=== PATIENT | female | born 1960 | race Caucasian/White ===

== ENCOUNTER 2019-04-06 18:22 | Emergency (ER) | payer MEDICARE, MEDICAID, SELFPAY ==
[2019-04-06] VITALS (8 sets, daily range): BP systolic 107–127; BP diastolic 51–80; PULSE 83–106; RESP 13–24; TEMP 36.6–37.3; O2SAT 93–97
--- NOTE | ~2019-04-06 | XR_ITS ---
EXAMINATION: XR chest 2V DATE: 04/06/2019 19:45 INDICATION: COPD presenting with cough and dyspnea TECHNIQUE: frontal and lateral views of the chest were obtained. COMPARISON: Chest radiograph dated 07/29/2017 FINDINGS: The lungs remain clear with no focal airspace opacities, pulmonary edema, pleural effusion or pneumot horax. The cardiomediastinal silhouette is normal. Visualized bones and soft tissues are unremarkable . IMPRESSION: 1. No acute cardiopulmonary disease. Reviewed, dictated and finalized at location A. WELDER
--- NOTE | 2019-04-06 18:34 | ED.SOB ---
HPI - SOB/Dyspnea General Chief Complaint: Shortness of Breath/Dyspnea Stated Complaint: sob Time Seen by Provider: 04/06/19 18:28 Source: patient and RN notes reviewed Mode of arrival: EMS Limitations: no limitations History of Present Illness HPI Narrative: A 58 y/o female presents to the ED via EMS with worsening SOB beginning earlier today. She states that she is on 1L NC on and off and that today she bumped it to 1.5L NC but denies it alleviating her SOB. She reports associated substernal CP, a fever of 101, and a productive cough. Per EMS notes that they gave the pt a DuoNeb breathing tx and SoluMedrol 125 mg IVP, which the pt states helped her SOB. She denies any edema, leg pain, sweats, N/V/D, or ABD pain. MD elicited complaint: shortness of breath and pain with inspiration Pertinent past history: COPD Onset (ago): hour(s) (today) Timing: progressively worsening Relieving factors: other (DuoNeb breathing tx and SoluMedrol 125 mg IVP) Known history of: COPD Associated symptoms: chest pain (substernal), fever (101) and cough (productive) Treatment prior to arrival: oxygen and other (DuoNeb breathing tx and SoluMedrol 125 mg IVP) Related Data Home oxygen amount: 1 liter (1-1.5 NC) Allergies Allergy/AdvReac Type Severity Reaction Status Date / Time No Known Allergies Allergy Unverified 11/20/17 10:39 Review of Systems Review of Systems: Narrative: CONSTITUTIONAL: Denies sweats. Reports a fever of 101. CARDIOVASCULAR: Denies edema or leg pain. Reports substernal CP. RESPIRATORY: Reports a productive cough or dyspnea. GASTROINTESTINAL: Denies abdominal pain, nausea, vomiting, or diarrhea. All systems reviewed & are unremarkable except as noted in HPI and below PMFSH Past Medical History Medical History (Updated 04/06/19 @ 21:24 by Fawn August MD) Anxiety Arthritis Asthma Bronchitis COPD (chronic obstructive pulmonary disease) H/O: HTN (hypertension) MORTON (headache) History of ovarian cyst Hx of breast cancer Hx: UTI (urinary tract infection) Hypercholesteremia Psoriasis Sleep apnea Ulcer Surgical History Surgical History (Updated 04/06/19 @ 20:11 by Ron Noonan) History of endometrial ablation History of lumpectomy lt. Hx of shoulder surgery rt. Hx of tubal ligation Social History Social History (Updated 04/06/19 @ 20:11 by Ron Noonan) Smoking packs per day: 1 Smoking cigarettes per day: 20.0 Smoking status: Current every day smoker Exam Narrative: Exam Narrative: GENERAL: Well-appearing, well-nourished, and in no acute distress. HEAD: Normocephalic, atraumatic. EYES: PERRLA and EOMI. ENT: Nares clear, no rhinorrhea or epistaxis. Mucous membranes dry. NECK: Supple. CHEST: Mild respiratory distress, tachypneic, decreased bs in lower lungs, expiratory wheezes. HEART: Tachycardia and regular rhythm. No murmur heard. Normal peripheral pulses. ABDOMEN: Soft, nontender, nondistended, normal active bowel sounds. EXTREMITIES: Normal range of motion. No edema. SKIN: Warm, dry, no rash. NEURO: No focal deficits. Alert and oriented X3. Course Course Emergency Course: Patient presented in mild respiratory distress. Reportedly, patient has had fever, cough and shortness of breath at home. Patient also reporting chest pain, but more than the typical presentation for chest pain that she attributes more to her shortness of breath. On exam, patient does have some expiratory wheezing, increased work of breathing with use of accessory muscles. She was given another DuoNeb treatment, magnesium and steroids with improvement in her symptoms. Patient's flu swab is negative here. Patient had some lower blood pressures, but was fluid responsive. No lactic acidosis. No elevation in troponin. She has some borderline depressions on her EKG, but again with normal troponin. She was ambulated, not dizzy or lightheaded. She did not want to be admitted to the hospital, and because she was not hypoxic with ambulation, I
--- NOTE | 2019-04-06 18:35 | ECG_ITS ---
Measurements Intervals [place] Rate: 104 P: 47 TX: 131 QRS: 61 QRSD: 93 T: 45 QT: 363 QTc: 479 Interpretive Statements SINUS TACHYCARDIA DELAYED PRECORDIAL R/S TRANSITION NONSPECIFIC ST & T-WAVE ABNORMALITY- INF/LAT LEADS ABNORMAL ECG Electronically Signed On 04-08-2019 12:55:21 AUDIO VISUAL AIDE by Evan Galloway D.O.
--- NOTE | 2019-04-06 18:35 | PC.NURSE ---
Late entry: [facility] STAT for SOB, per Dr. August.
[2019-04-06] MEDS: ACETAMINOPHEN 500 MG TABLET 1000 MG PO (18:50)
[2019-04-06] MEDS: SODIUM CHLORIDE 0.9% IV 1,000 ML 999 ML IV CONT (18:50)
[2019-04-06] MEDS: ONDANSETRON INJ 4 MG/2 ML VIAL IV PUSH (18:50)
[2019-04-06 18:59] LABS: Basophils Absolute Auto 0.1 K/mm3 (0.0-0.1); Basophils Percent Auto 0.7 % (0.2-1.2); Eosinophils Absolute Auto 0.1 K/mm3 (0-0.3); Eosinophils Percent Auto 1.1 % (0-4.4); Hematocrit 39.4 % (37.0-47.0); Hemoglobin 13.1 g/dL (12.0-15.0); Immature Granulocyte Absolute 0.02 K/mm3 (0.00-0.031); Immature Granulocyte Percent A 0.3 % (0-0.5); Lymphocytes Absolute Auto 0.86 K/mm3 (0.9-3.2); Lymphocytes Percent Auto 12.2 % (18.3-44.2); Mean Corpuscular HGB Conc 33.2 g/dl (32-36); Mean Corpuscular Hemoglobin 32.5 pg (26-34); Mean Corpuscular Volume 97.8 fl (80-100); Mean Platelet Volume 10.7 fl (7.4-10.4); Monocytes Absolute Auto 1.4 K/mm3 (0.1-0.6); Monocytes Percent Auto 20.2 % (2.6-8.5); Neutrophils Absolute Auto 4.6 K/mm3 (1.3-6.7); Neutrophils Percent Auto 65.5 % (45.5-73.1); Platelet Count Result 178 k/mm3 (150-375); Red Blood Count 4.03 M/mm3 (4.2-5.4); White Blood Count 7.1 K/mm3 (4.5-10.0)
[2019-04-06] MEDS: ALBUTEROL SULFATE NEB 2.5 MG/0.5 ML INH 20 MG INHALATION (19:00)
[2019-04-06 19:10] LABS: Alanine Aminotransferase 42 U/L (4-35); Alkaline Phosphatase 84 U/L (38-126); Aspartate Amino Transferase 28 U/L (14-36); Bilirubin,Total 0.4 mg/dL (0.2-1.3); Blood Urea Nitrogen 14 mg/dL (7-17); Calcium 8.5 mg/dL (8.4-10.2); Carbon Dioxide 25 mmol/L (22-30); Chloride 100 mmol/L (98-107); Estimated CRCL calculation 82 ml/min; Estimated Glomerular Filt Rate > 60; Glucose 108 mg/dL (65-105); Lipase 41 U/L (23-300); Potassium 3.1 mmol/L (3.4-5.0); Sodium 135 mmol/L (137-145)
[2019-04-06 19:12] LABS: Prothrombin Time 13.1 Seconds (11.1-14.7)
[2019-04-06 19:13] LABS: Partial Thromboplastin Time 29.4 SECONDS (22.3-36.8)
[2019-04-06] MEDS: MAGNESIUM SULF 2 GM/WATER 50ML 2 GM/50 ML BAG IVPB (19:19)
[2019-04-06 19:22] LABS: Troponin I < 0.012 ng/mL (0.000-0.034)
[2019-04-06 19:29] LABS: Lactic Acid Reflex 1.1 mmol/L (0.7-2.1)
--- NOTE | 2019-04-06 20:18 | PC.NURSE ---
Patient refused ABG draw, stating I heard they hurt I am not doing that. EDP Mata aware.
[2019-04-06 20:39] LABS: Add Urine Microscopic? YES; Appearance Urine Clear (Clear); Bacteria Urine Trace /hpf; Bilirubin Urine Negative (Negative); Blood Urine 2+ (Negative); Color Urine Yellow (Yellow); Glucose Urine UA Negative (Negative); Ketones Urine Negative (Negative); Leukocyte Esterase Ur Negative LEU/UL (Negative); Mucus Urine Few /lpf; Nitrate Urine Negative (Negative); Protein Urine Negative (Negative); RBC Urine 0-2 /hpf (0-2); Specific Grav Ur 1.019 (1.001-1.035); Squamous Epithelial Cell Urine Rare /hpf (Few); Urobilinogen Urine Negative mg/dL (<2.0)
--- NOTE | 2019-04-06 21:19 | PC.NURSE ---
While ambulating patient on pulse ox, patient's O2 level ranging from 91%-93% on room air.
--- NOTE | 2019-04-06 21:43 | PC.NURSE ---
Breathing treatment administered by ED Respiratory.
--- NOTE | 2019-04-06 21:43 | PC.NURSE ---
Patient refusing another 1000mL bag of NS. States she wants to leave right now. EDP Mata notified.
--- NOTE | 2019-04-11 04:28 | PC.NURSE ---
LATE ENTRY This note is being entered to document information to the patient's record. The following information was omitted on [04/06/2019], by [Madi Fajardo]. EKG completed at 1835, shown to LILO August.
== END 2019-04-06 21:55 | disposition home or self-care (01) ==
PROVIDERS: Emergency Provider Emergency Medicine
DX: J44.1 Chronic obstructive pulmonary disease with (acute) exacerbation (principal); M19.90 Unspecified osteoarthritis, unspecified site; I10 Essential (primary) hypertension; E78.00 Pure hypercholesterolemia, unspecified; Z85.3 Personal history of malignant neoplasm of breast; Z87.440 Personal history of urinary (tract) infections; G47.30 Sleep apnea, unspecified; F17.210 Nicotine dependence, cigarettes, uncomplicated; R00.0 Tachycardia, unspecified; R94.31 Abnormal electrocardiogram [ECG] [EKG]
CPT/HCPCS: 36415; 71046; 80053; 81001; 83605; 83690; 84484; 85025; 85610; 85730; 87040; 87804; 93005; 94640; 96365; 96375; 99284; A9270; J2405; J3475; J7030

== ENCOUNTER 2019-07-21 18:18 | Emergency (ER) | payer MEDICARE, MEDICAID, SELFPAY ==
--- NOTE | ~2019-07-21 | XR_ITS ---
EXAMINATION: XR ribs BI 3V w CXR 2V EXAM DATE: 07/21/2019 19:36 INDICATION: Right rib pain laterally. Left rib pain posteriorly. TECHNIQUE: Frontal projection of the upper left ribs, frontal projection of the lower left ribs, obli que projection of the left ribs. Frontal projection of the upper right ribs, frontal projection of t he lower right ribs, oblique projection of the right ribs, frontal and lateral chest x-ray(s) for int erpretation. Comparison is made to prior examination from 04/06/2019. FINDINGS: There are no displaced acute rib fractures identified. Consider educating patient that even if there is a radiographically occult nondisplaced rib fracture, there is no specific treatment othe r than to refrain from activity that prevents healing. There are no osteoblastic or osteolytic lesions identified. 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 No confluent consolidation, pneumothorax or pleural effusion suspected. Cardiomediastinal silhouet te is normal. IMPRESSION: No acute displaced rib fractures bilaterally. Reviewed, dictated and finalized at location A.
[2019-07-21 18:21] VITALS: BP 107/86; PULSE 83; RESP 18; TEMP 37.2; O2SAT 100
[2019-07-21 18:51] LABS: Add Urine Microscopic? YES; Appearance Urine Clear (Clear); Bacteria Urine Trace /hpf; Bilirubin Urine Negative (Negative); Blood Urine 2+ (Negative); Color Urine Yellow (Yellow); Glucose Urine UA Negative (Negative); Ketones Urine Negative (Negative); Leukocyte Esterase Ur Negative LEU/UL (Negative); Mucus Urine Rare /lpf; Nitrate Urine Negative (Negative); Protein Urine Negative (Negative); RBC Urine 0-2 /hpf (0-2); Specific Grav Ur 1.016 (1.001-1.035); Squamous Epithelial Cell Urine Rare /hpf (Few); Urobilinogen Urine Negative mg/dL (<2.0); WBC Urine 0-3 /hpf
[2019-07-21 19:03] LABS: Basophils Absolute Auto 0.1 K/mm3 (0.0-0.1); Basophils Percent Auto 0.8 % (0.2-1.2); Eosinophils Absolute Auto 0.2 K/mm3 (0-0.3); Eosinophils Percent Auto 1.9 % (0-4.4); Hematocrit 40.7 % (37.0-47.0); Hemoglobin 13.5 g/dL (12.0-15.0); Immature Granulocyte Absolute 0.02 K/mm3 (0.00-0.031); Immature Granulocyte Percent A 0.2 % (0-0.5); Lymphocytes Absolute Auto 1.34 K/mm3 (0.9-3.2); Lymphocytes Percent Auto 14.5 % (18.3-44.2); Mean Corpuscular HGB Conc 33.2 g/dl (32-36); Mean Corpuscular Hemoglobin 32.8 pg (26-34); Mean Corpuscular Volume 98.8 fl (80-100); Mean Platelet Volume 10.4 fl (7.4-10.4); Monocytes Absolute Auto 0.7 K/mm3 (0.1-0.6); Monocytes Percent Auto 7.4 % (2.6-8.5); Neutrophils Percent Auto 75.2 % (45.5-73.1); Platelet Count Result 258 k/mm3 (150-375); Red Blood Count 4.12 M/mm3 (4.2-5.4); Red Cell Distribution Width 13.4 % (11.5-14.5); White Blood Count 9.3 K/mm3 (4.5-10.0)
[2019-07-21 19:14] LABS: Blood Urea Nitrogen 11 mg/dL (7-17); Calcium 8.9 mg/dL (8.4-10.2); Carbon Dioxide 29 mmol/L (22-30); Chloride 103 mmol/L (98-107); Estimated CRCL calculation 82 ml/min; Estimated Glomerular Filt Rate > 60; Glucose 99 mg/dL (65-105); Potassium 3.6 mmol/L (3.4-5.0); Sodium 136 mmol/L (137-145)
--- NOTE | 2019-07-21 19:17 | ECG_ITS ---
Measurements Intervals [place] Rate: 64 P: 56 NV: 122 QRS: 74 QRSD: 102 T: 50 QT: 406 QTc: 421 Interpretive Statements SINUS RHYTHM BASELINE WANDER- I, II, AVR NORMAL ECG Electronically Signed On 07-22-2019 7:06:31 CDT by Evan Galloway D.O.
[2019-07-21 19:26] LABS: Alanine Aminotransferase 24 U/L (4-35); Albumin Level 4.2 g/dL (3.5-5.1); Alkaline Phosphatase 98 U/L (38-126); Aspartate Amino Transferase 30 U/L (14-36); Bilirubin,Total 0.9 mg/dL (0.2-1.3); Lipase 38 U/L (23-300)
--- NOTE | 2019-07-21 19:45 | ED.BACK ---
HPI - Back Pain/Injury General Chief Complaint: Back Pain/Injury <Yudy Dietrich PA-C - Last Filed: 07/21/19 21:07> Stated Complaint: flank pain <MARCIE Ceballos Last Filed: 07/21/19 21:07> Time Seen by Provider: 07/21/19 18:57 <MARCIE Ceballos Last Filed: 07/21/19 21:07> Source: patient <MARCIE Ceballos Last Filed: 07/21/19 21:07> Mode of arrival: ambulatory <MARCIE Ceballos Last Filed: 07/21/19 21:07> Limitations: no limitations <MARCIE Ceballos Last Filed: 07/21/19 21:07> History of Present Illness HPI Narrative: This is a 58 year old female that presents to the ER for right sided rib pain and upper back pain x 1 week. No known injury or trauma. Pain is worse with movement and relieved with rest. She has been taking pain medication with little relief. Denies fever, cough, shortness of breath, abdominal pain, vomiting, dysuria, hematuria. <MARCIE Ceballos Last Filed: 07/21/19 21:07> Related Data Allergies/Adverse Reactions: Allergies Allergy/AdvReac Type Severity Reaction Status Date / Time ciprofloxacin Allergy Vomiting Verified 07/21/19 18:25 levofloxacin [From Levaquin] Allergy Vomiting Verified 07/21/19 18:25 <MARCIE Ceballos Last Filed: 07/21/19 21:07> Review of Systems Review of Systems: Narrative: CONSTITUTIONAL: Denies fever CARDIOVASCULAR: Reports chest pain RESPIRATORY: Denies cough or dyspnea. GASTROINTESTINAL: Denies abdominal pain, nausea, vomiting, or diarrhea. GENITOURINARY: Denies dysuria or hematuria. MUSCULOSKELETAL: Reports back pain, joint pain, and myalgia. <MARCIE Ceballos Last Filed: 07/21/19 21:07> All systems reviewed & are unremarkable except as noted in HPI and below <MARCIE Ceballos Last Filed: 05/24/20 21:07> PMFSH Past Medical History Medical History: Medical History (Updated 07/22/19 @ 00:00 by Evangelista Sales) Anxiety Arthritis Asthma Bronchitis COPD (chronic obstructive pulmonary disease) H/O: HTN (hypertension) MORTON (headache) History of ovarian cyst Hx of breast cancer Hx: UTI (urinary tract infection) Hypercholesteremia Psoriasis Sleep apnea Ulcer <Yudy Dietrich PA-C - Last Filed: 07/21/19 21:07> Surgical History Surgical History: Surgical History (Updated 04/06/19 @ 20:11 by Ron Noonan) History of endometrial ablation History of lumpectomy lt. Hx of shoulder surgery rt. Hx of tubal ligation <Yudy Dietrich PA-C - Last Filed: 07/21/19 21:07> Social History Social History: Social History (Updated 04/06/19 @ 20:11 by Ron Noonan) Smoking packs per day: 1 Smoking cigarettes per day: 20.0 Smoking status: Current every day smoker <Yudy Dietrich PA-C - Last Filed: 07/21/19 21:07> Course Vital Signs Vital signs: Vital Signs Temperature 37.2 C 07/21/19 18:21 Pulse Rate 83 07/21/19 18:21 Respiratory Rate 18 07/21/19 18:21 Blood Pressure 107/86 07/21/19 18:21 Pulse Oximetry 100 07/21/19 18:21 Temperature 37.2 C 07/21/19 18:21 Pulse Rate 81 07/21/19 21:15 Respiratory Rate 18 07/21/19 21:15 Blood Pressure 112/64 07/21/19 21:15 Pulse Oximetry 98 07/21/19 21:15 <Yudy Dietrich PA-C - Last Filed: 07/21/19 21:07> Vital Signs Temperature 37.2 C 07/21/19 18:21 Pulse Rate 83 07/21/19 18:21 Respiratory Rate 18 07/21/19 18:21 Blood Pressure 107/86 07/21/19 18:21 Pulse Oximetry 100 07/21/19 18:21 Temperature 37.2 C 07/21/19 18:21 Pulse Rate 81 07/21/19 21:15 Respiratory Rate 18 07/21/19 21:15 Blood Pressure 112/64 07/21/19 21:15 Pulse Oximetry 98 07/21/19 21:15 <Isak Pablo MD - Last Filed: 07/22/19 03:41> MDM - Back Pain/Injury MDM Narrative Medical decision making narrative: Patient presents to the emergency department for right-sided rib pain and left sided upper back pain x1 week. No known inj
[2019-07-21 19:50] LABS: Troponin I < 0.012 ng/mL (0.000-0.034)
[2019-07-21 21:15] VITALS: BP 112/64; PULSE 81; RESP 18; O2SAT 98
== END 2019-07-21 21:18 | disposition home or self-care (01) ==
PROVIDERS: Emergency Medicine; Physician Assistant; Emergency Provider Emergency Medicine
DX: R07.81 Pleurodynia (principal); M54.6 Pain in thoracic spine; M19.90 Unspecified osteoarthritis, unspecified site; J45.909 Unspecified asthma, uncomplicated; J44.9 Chronic obstructive pulmonary disease, unspecified; I10 Essential (primary) hypertension; Z85.3 Personal history of malignant neoplasm of breast; Z87.440 Personal history of urinary (tract) infections; E78.00 Pure hypercholesterolemia, unspecified; G47.30 Sleep apnea, unspecified; F17.210 Nicotine dependence, cigarettes, uncomplicated
CPT/HCPCS: 36415; 71046; 71110; 80048; 80076; 81001; 83690; 84484; 85025; 93005; 96374; 96375; 99284; J0131; J3360

== ENCOUNTER 2019-08-04 17:21 | Emergency (ER) | payer MEDICARE, MEDICAID, SELFPAY ==
--- NOTE | ~2019-08-04 | XR_ITS ---
EXAMINATION: XR chest 1V portable EXAM DATE: 08/04/2019 18:36 INDICATION: Hemoptysis. Shortness of breath abdominal pain. History of liver disease and lung cancer. TECHNIQUE: Portable AP frontal chest x-ray was obtained. Comparison is made to prior examination from 07/21/2019. FINDINGS: The lungs are clear. There are no pleural effusions. The cardiomediastinal silhouette is within normal limits. There is no pneumothorax suspected. The bones and soft tissues are unremarkab le. Mild hyperinflation. IMPRESSION: No acute cardiopulmonary findings. Reviewed, dictated and finalized at location A.
[2019-08-04 17:22] VITALS: BP 151/75; PULSE 78; RESP 16; TEMP 36.7; O2SAT 100
[2019-08-04 17:41] LABS: Basophils Percent Auto 0.4 % (0.2-1.2); Eosinophils Absolute Auto 0.3 K/mm3 (0-0.3); Eosinophils Percent Auto 2.7 % (0-4.4); Hematocrit 41.3 % (37.0-47.0); Hemoglobin 13.7 g/dL (12.0-15.0); Immature Granulocyte Absolute 0.04 K/mm3 (0.00-0.031); Immature Granulocyte Percent A 0.4 % (0-0.5); Lymphocytes Absolute Auto 1.58 K/mm3 (0.9-3.2); Lymphocytes Percent Auto 14.1 % (18.3-44.2); Mean Corpuscular HGB Conc 33.2 g/dl (32-36); Mean Corpuscular Hemoglobin 33.5 pg (26-34); Mean Platelet Volume 10.7 fl (7.4-10.4); Monocytes Absolute Auto 0.9 K/mm3 (0.1-0.6); Monocytes Percent Auto 7.7 % (2.6-8.5); Neutrophils Absolute Auto 8.4 K/mm3 (1.3-6.7); Neutrophils Percent Auto 74.7 % (45.5-73.1); Platelet Count Result 263 k/mm3 (150-375); Red Blood Count 4.09 M/mm3 (4.2-5.4); White Blood Count 11.2 K/mm3 (4.5-10.0)
--- NOTE | 2019-08-04 17:41 | ED.GENADULT ---
HPI - General Adult General Chief complaint: Abdominal Pain Stated complaint: abd pain, cough up blood Time Seen by Provider: 08/04/19 17:23 History of Present Illness HPI narrative: Patient is a 58 y/o female complaining of right upper abdominal pain for last 3 weeks. She describes her pain as sharp and rate it as more than 10/10. There is no pain radiation. She has some chest pain with cough and some chronic SOB. She also coughs up blood intermittently. She states that heating pad alleviates her pain slightly. Of note, she had CT scan done at [facility] last week. She states that she was told it showed lung nodule and liver lesion. She was referred to a oncologist (Dr. Saravia) and scheduled to have PET scan. She was told Dr. Saravia today to come to ED for evaluation. Related Data Home Medications Medication Instructions Recorded Confirmed albuterol sulfate [Ventolin HFA] INHALATION 08/04/19 alendronate [Fosamax] 70 mg PO WEEKLY 08/04/19 08/04/19 amlodipine 08/04/19 anastrozole mg 08/04/19 aspirin [Aspir-81] 81 mg PO DAILY 08/04/19 08/04/19 budesonide 0.5 mg INHALATION DAILY 08/04/19 calcium carbonate-vitamin D3 1 tablet PO DAILY 08/04/19 [Caltrate 600 plus D] clopidogrel [Plavix] 08/04/19 cyanocobalamin (vitamin B-12) 1,000 mcg PO DAILY 08/04/19 ezetimibe [Zetia] mg 08/04/19 folic acid 1 mg PO DAILY 08/04/19 furosemide 08/04/19 08/04/19 hydrocodone-acetaminophen PRN 08/04/19 irbesartan mg 08/04/19 irbesartan mg 08/04/19 lorazepam 08/04/19 methotrexate sodium 08/04/19 potassium chloride 10 PRN 08/04/19 rosuvastatin mg 08/04/19 Allergies Allergy/AdvReac Type Severity Reaction Status Date / Time ciprofloxacin Allergy Vomiting Verified 08/04/19 17:46 levofloxacin [From Levaquin] Allergy Vomiting Verified 08/04/19 17:46 Review of Systems Constitutional: Constitutional: Denies chills, Denies fever(s), Denies headache(s) and Denies weakness Eyes: Eyes: Denies blurry vision ENT: Denies headache(s) and Denies neck pain Cardiovascular: Cardiovascular: Reports chest pain and Reports dyspnea Respiratory: Respiratory: Reports cough, Reports hemoptysis, Reports pain with cough and Denies dyspnea Gastrointestinal: Gastrointestinal: Reports abdominal pain, Denies diarrhea, Denies nausea and Denies vomiting Genitourinary: Genitourinary: Denies hematuria and Denies dysuria Musculoskeletal: Musculoskeletal: Denies back pain and Denies neck pain Neurologic: Denies headache(s) and Denies weakness PMFSH Past Medical History Medical History Anxiety Arthritis Asthma Bronchitis COPD (chronic obstructive pulmonary disease) H/O: HTN (hypertension) MORTON (headache) History of ovarian cyst Hx of breast cancer Hx: UTI (urinary tract infection) Hypercholesteremia Psoriasis Sleep apnea Ulcer Surgical History Surgical History History of endometrial ablation History of lumpectomy lt. Hx of shoulder surgery rt. Hx of tubal ligation Social History Social History Smoking packs per day: 1 Smoking cigarettes per day: 20.0 Smoking status: Current every day smoker Gender identity (if verbalized by the patient): Female Exam Const: General: no acute distress and well developed Orientation/consciousness: oriented to person, oriented to place, oriented to time and patient oriented x3 HENMT: Head: normocephalic Ears: external ears normal General nose exam: Normal external nose present Eyes: General: appearance normal, both eyes and all related structures Conjunctivae: conjunctivae normal Neck: Neck: normal visual inspection and full ROM Chest: Chest palpation & inspection: normal inspection of the chest and no tenderness Resp: Effort & Inspection: normal respiratory effort Auscultation: clear to auscultation bilaterally Cardio:
[2019-08-04 17:53] LABS: Alanine Aminotransferase 36 U/L (4-35); Albumin Level 3.8 g/dL (3.5-5.1); Alkaline Phosphatase 95 U/L (38-126); Aspartate Amino Transferase 60 U/L (14-36); Bilirubin,Total 1.2 mg/dL (0.2-1.3); Blood Urea Nitrogen 12 mg/dL (7-17); Calcium 8.5 mg/dL (8.4-10.2); Carbon Dioxide 27 mmol/L (22-30); Chloride 100 mmol/L (98-107); Estimated CRCL calculation 94 ml/min; Estimated Glomerular Filt Rate > 60; Glucose 116 mg/dL (65-105); Lipase 40 U/L (23-300); Potassium 3.8 mmol/L (3.4-5.0); Sodium 132 mmol/L (137-145)
[2019-08-04] MEDS: ONDANSETRON INJ 4 MG/2 ML VIAL IV PUSH (18:07)
[2019-08-04] MEDS: MORPHINE SULFATE 4 MG/ML INJ IV PUSH (18:08)
[2019-08-04 19:03] VITALS: BP 134/86; PULSE 74; RESP 18; O2SAT 98
[2019-08-04 19:15] LABS: Add Urine Microscopic? YES; Appearance Urine Clear (Clear); Bilirubin Urine Negative (Negative); Blood Urine 1+ (Negative); Color Urine Yellow (Yellow); Glucose Urine UA Negative (Negative); Ketones Urine Negative (Negative); Leukocyte Esterase Ur Negative LEU/UL (Negative); Mucus Urine Rare /lpf; Nitrate Urine Negative (Negative); Protein Urine Negative (Negative); Specific Grav Ur 1.014 (1.001-1.035); Squamous Epithelial Cell Urine Occasional /hpf (Few); WBC Urine 0-3 /hpf
[2019-08-04 20:03] VITALS: BP 124/83; PULSE 84; RESP 20; O2SAT 95
== END 2019-08-04 20:05 | disposition home or self-care (01) ==
PROVIDERS: Emergency Provider Emergency Medicine
DX: R91.8 Other nonspecific abnormal finding of lung field (principal); R16.0 Hepatomegaly, not elsewhere classified; M19.90 Unspecified osteoarthritis, unspecified site; F41.9 Anxiety disorder, unspecified; J44.9 Chronic obstructive pulmonary disease, unspecified; I10 Essential (primary) hypertension; Z85.3 Personal history of malignant neoplasm of breast; Z87.440 Personal history of urinary (tract) infections; E78.00 Pure hypercholesterolemia, unspecified; G47.30 Sleep apnea, unspecified; F17.210 Nicotine dependence, cigarettes, uncomplicated
CPT/HCPCS: 36415; 71045; 80053; 81001; 83690; 85025; 96374; 96375; 99284; J2270; J2405

== ENCOUNTER 2020-08-11 18:26 | Emergency (ER) | payer MEDICARE, MEDICAID, SELFPAY ==
[2020-08-11 18:34] VITALS: BP 140/96; PULSE 82; RESP 16; TEMP 37; O2SAT 100
--- NOTE | 2020-08-11 21:45 | ED.GENADULT ---
HPI - General Adult General Chief complaint: Unspecified Stated complaint: sore to lower lip Time Seen by Provider: 08/11/20 21:32 History of Present Illness HPI narrative: Patient is a 59-year-old female who presents the emergency department with chief complaint of mouth pain. Patient reports she is seen by with her primary care physician and dermatology she is on a Magic mouthwash to help with the discomfort which she states is not helping. The patient states she is on a oral antiviral and also has been on an antibiotic. Patient denies fever denies shortness of breath reports that it hurts whenever she swallows patient also reports that she has irritation in her rectal area Related Data Home Medications Medication Instructions Recorded Confirmed albuterol sulfate [Ventolin HFA] INHALATION 08/04/19 alendronate [Fosamax] 70 mg PO WEEKLY 08/04/19 08/04/19 amlodipine 08/04/19 anastrozole mg 08/04/19 aspirin [Aspir-81] 81 mg PO DAILY 08/04/19 08/04/19 budesonide 0.5 mg INHALATION DAILY 08/04/19 calcium carbonate-vitamin D3 1 tablet PO DAILY 08/04/19 [Caltrate 600 plus D] clopidogrel [Plavix] 08/04/19 cyanocobalamin (vitamin B-12) 1,000 mcg PO DAILY 08/04/19 ezetimibe [Zetia] mg 08/04/19 folic acid 1 mg PO DAILY 08/04/19 furosemide 08/04/19 08/04/19 hydrocodone-acetaminophen PRN 08/04/19 irbesartan mg 08/04/19 irbesartan mg 08/04/19 lorazepam 08/04/19 methotrexate sodium 08/04/19 potassium chloride 10 PRN 08/04/19 rosuvastatin mg 08/04/19 Allergies Allergy/AdvReac Type Severity Reaction Status Date / Time hydrocodone Allergy Unknown Verified 08/08/19 08:48 ciprofloxacin Allergy Vomiting Verified 08/08/19 08:48 levofloxacin [From Levaquin] Allergy Vomiting Verified 08/08/19 08:48 Review of Systems Review of Systems: Narrative: A 10 system review of systems was completed on the patient and is negative except for what is stated in the HPI. Nursing and ancillary documentation was reviewed. [facility] Past Medical History Medical History (Updated 08/11/20 @ 21:53 by Dangelo Hogan MD) Anxiety Arthritis Asthma Bronchitis COPD (chronic obstructive pulmonary disease) H/O: HTN (hypertension) MORTON (headache) History of ovarian cyst Hx of breast cancer Hx: UTI (urinary tract infection) Hypercholesteremia Psoriasis Sleep apnea Ulcer Surgical History Surgical History History of endometrial ablation History of lumpectomy lt. Hx of shoulder surgery rt. Hx of tubal ligation Family History Family History Mother Family history of cardiovascular disease Father Family history of primary malignant neoplasm of liver Family history of liver disease Social History Social History Smoking packs per day: 1 Smoking cigarettes per day: 20.0 Smoking status: Current every day smoker Second hand tobacco smoke exposure: No Alcohol intake: never Gender identity (if verbalized by the patient): Female Exam Narrative: Exam Narrative: GENERAL: Well-appearing, well-nourished, and in no acute distress. HEAD: Normocephalic, atraumatic. EYES: PERRLA and EOMI. ENT: Nares clear, no rhinorrhea or epistaxis. Mucous membranes moist. Multiple ulcerations in the mouth NECK: Supple. CHEST: Clear to auscultation. No respiratory distress. HEART: Regular rate and rhythm. No murmur heard. Normal peripheral pulses. ABDOMEN: Soft, nontender, nondistended, normal active bowel sounds. EXTREMITIES: Normal range of motion. No edema. : There are ulcerations in the rectal area SKIN: Warm, dry, no rash. NEURO: No focal deficits. Alert and oriented x3. PSYCH: Normal mood and affect. Course Vital Signs Vital signs: Vital Signs Temperature 37.0 C 08/11/20 18:34 Pulse Rate 82 08/11/20 18:34 Respiratory
[2020-08-11] MEDS: DEXAMETHASONE SOD PHOS INJ 4 MG/ML VIAL 10 MG IM (22:06)
[2020-08-11] MEDS: HYDROmorphone HCL INJ (*CRX) 1 MG/ML SYR IM (22:07)
[2020-08-11 22:12] VITALS: BP 132/89; PULSE 78; RESP 20; O2SAT 99
== END 2020-08-11 22:12 | disposition home or self-care (01) ==
PROVIDERS: Emergency Provider Emergency Medicine
DX: K12.1 Other forms of stomatitis (principal); J44.9 Chronic obstructive pulmonary disease, unspecified; I10 Essential (primary) hypertension; E78.00 Pure hypercholesterolemia, unspecified; G47.30 Sleep apnea, unspecified; M19.90 Unspecified osteoarthritis, unspecified site; Z85.3 Personal history of malignant neoplasm of breast; Z87.440 Personal history of urinary (tract) infections; Z79.82 Long term (current) use of aspirin; F17.210 Nicotine dependence, cigarettes, uncomplicated
CPT/HCPCS: 96372; 99284; J1100; J1170

== ENCOUNTER 2021-12-08 08:11 | Outpatient (CLI) | payer MEDICARE, MEDICAID, SELFPAY ==
--- NOTE | ~2021-12-08 | US_ITS ---
EXAMINATION: US carotid duplex BI DATE: 12/08/2021 10:14 INDICATION: Occlusion) stenosis of unspecified carotid artery TECHNIQUE: Grayscale, color Doppler, and pulsed Doppler images of the cervical carotid arteries were obtained. The degree of vessel stenosis is placed in one of the following categories: normal, <50%, 5 0-69%, >=70% but less than near-occlusion, near-occlusion, or total occlusion. Note that percent sten osis relative to normal distal artery lumen diameter is indirectly measured from velocity measurement s as described by Isak, et al. Radiology 2003; 229:340-346. COMPARISON: None. FINDINGS: RIGHT: The right common carotid artery (CCA) peak systolic velocity (PSV) is 72 cm/s. The right internal car otid artery (ICA) PSV is 88 cm/s. The right ICA end-diastolic velocity (EDV) is 11 cm/s. The right IC A/CCA PSV ratio is 1.2. Grayscale and color Doppler images yield an estimate of <50% diameter reducti on from plaque in the ICA. The external carotid artery (ECA) PSV is 178 cm/s. There is antegrade flow in the right vertebral artery. LEFT: The left CCA PSV is 68 cm/s. The left ICA PSV is 117 cm/s. The left ICA EDV is 38 cm/s. The left ICA/ CCA PSV ratio is 1.7. Grayscale and color Doppler images yield an estimate of <50% diameter reduction from plaque in the ICA. The ECA PSV is 95 cm/s. There is antegrade flow in the left vertebral artery . IMPRESSION: 1. <50% stenosis in the right internal carotid artery. 2. <50% stenosis in the left internal carotid artery. Reviewed, dictated and finalized at location B.
--- NOTE | 2021-12-08 08:25 | ECHO_ITS ---
Patient Info Name: Robyn Mendez Age: 61 years : 1960 Gender: Female Ht: 65 in Wt: 214 lbs BSA: 2.15 m2 HR: 78 bpm BP: 117 / 69 mmHg Technical Quality: Fair Exam Date: 12/08/2021 9:26 AM Exam Location: [facility] Pul[facility] Patient Status: Outpatient Admit Date: 12/08/2021 Staff Ordering Physician: Evan Galloway DO Grocery Stock Clerk: Sola Benjamin RDCS Attending Provider: Evan Galloway DO Referring Physician: Nilesh PATINO; Exam Type: CA echo doppler color flow Study Info Indications R06.00 - Dyspnea, unspecified Complete two-dimensional, color flow and Doppler transthoracic echocardiogram is performed. Summary 1. Complete two-dimensional, color flow and Doppler transthoracic echocardiogram is performed. 2. Left ventricular chamber dimension is normal. 3. Left ventricular systolic function is normal, estimated at 60-65%. 4. The left ventricular diastolic function is grade I diastolic dysfunction. 5. E/e' 10 is mildly elevated. 6. Global longitudinal strain is normal at -17.2%. 7. The mitral valve has moderately calcified annulus. 8. There is trace tricuspid valve regurgitation. 9. No pulmonary hypertension, estimated pulmonary arterial systolic pressure is 27 mmHg. Left Ventricle E/e' 10 is mildly elevated. Global longitudinal strain is normal at -17.2%. Left ventricular chamber dimension is normal. Left ventricular systolic function is normal, estimated at 60-65%. The left ventricular diastolic function is grade I diastolic dysfunction. Right Ventricle Right ventricular systolic function is normal and with normal TAPSE 2.4 cm. Right ventricular chamber dimension is normal. Left Atria Left atrial chamber dimension is normal. Right Atria Right atrial chamber dimension is normal. Aortic Valve The aortic valve is probable trileaflet. There is no aortic valve stenosis. There is no aortic valve regurgitation. Pulmonic Valve There is no pulmonic regurgitation. Mitral Valve The mitral valve has moderately calcified annulus. There is no mitral valve stenosis. There is no mitral valve regurgitation. Tricuspid Valve There is trace tricuspid valve regurgitation. No pulmonary hypertension, estimated pulmonary arterial systolic pressure is 27 mmHg. Pericardium/Pleural There is no pericardial effusion. Inferior Vena Cava Normal inferior vena cava with >50% collapse upon inspiration consistent with normal right atrial pressure, 5 mmHg. Aorta The aortic root size at the sinus of Valsalva is normal. Left Ventricular Outflow Tract Name Value Normal LVOT 2D LVOT Diameter 2.0 cm LVOT Doppler LVOT Peak Gradient 5 mmHg LVOT Mean Gradient 3 mmHg LVOT VTI 25 cm LVOT VTI/AV VTI Ratio 0.9 LVOT Stroke Volume 75 ml LVOT CO 14.4 l/min LVOT CI 6.7 l/min/m2 Pulmonic Valve Name
== END 2021-12-08 08:12 | disposition home or self-care (01) ==
PROVIDERS: Visit Provider Internal Medicine Cardiovascular Disease
DX: I65.23 Occlusion and stenosis of bilateral carotid arteries (principal); R06.09 Other forms of dyspnea
CPT/HCPCS: 93306; 93880

== ENCOUNTER 2022-03-03 15:12 | Outpatient (CLI) | payer MEDICARE, MEDICAID, SELFPAY ==
[2022-03-03 15:43] LABS: Alanine Aminotransferase 30 U/L (6-35); Albumin Level 4.1 g/dL (3.5-5.1); Alkaline Phosphatase 86 U/L (38-126); Anion Gap 10 mmol/L (8-16); Aspartate Amino Transferase 27 U/L (14-36); Bilirubin,Total 0.4 mg/dL (0.2-1.3); Blood Urea Nitrogen 17 mg/dL (7-17); Calcium 8.5 mg/dL (8.4-10.2); Carbon Dioxide 23 mmol/L (22-30); Chloride 104 mmol/L (98-107); Cholesterol 132 mg/dL (0-200); Estimated Glomerular Filt Rate > 60; Glucose 152 mg/dL (65-110); HDL Direct 40 mg/dL; Potassium 3.6 mmol/L (3.4-5.0); Sodium 137 mmol/L (137-145); Triglycerides 111 mg/dL (<150)
[2022-03-03 15:54] LABS: LDL Cholesterol Direct 65 mg/dL
== END 2022-03-03 15:13 | disposition home or self-care (01) ==
PROVIDERS: Visit Provider Internal Medicine Cardiovascular Disease
DX: E78.00 Pure hypercholesterolemia, unspecified (principal)
CPT/HCPCS: 36415; 80053; 80061

== ENCOUNTER → 2022-03-07 08:54 | Outpatient (CLI) | payer MEDICARE, MEDICAID, SELFPAY ==
--- NOTE | ~2022-03-07 | DEXA_ITS ---
Bone Density Report Name: COOKIE CEDEÑO Age: 61 Sex: Female Ethnicity: White Date of : 1960 Indication: postmenopausal; screening for osteoporosis; cancer; asthma or emphysema; Referring Provider: JOSE ALFREDO PHILIPPE Study: Bone densitometry was performed. Exam Date: March 07, 2022 Accession number: [id number] Bone Density: Region BMD T-score Z-score Classification AP Spine (L1-L4) 0.833 -1.9 -0.5 Osteopenia Femoral Neck (Left) 0.605 -2.2 -0.9 Osteopenia Total Hip (Left) 0.835 -0.9 0.1 Normal Femoral Neck (Right) 0.613 -2.1 -0.8 Osteopenia Total Hip (Right) 0.799 -1.2 -0.2 Osteopenia Total Hip Mean 0.817 -1.1 -0.1 Osteopenia World Health Organization criteria for BMD impression classify patients as: Normal (T-score at or above -1.0), Osteopenia (T-score between -1.0 and -2.5), or Osteoporosis (T-score at or below -2.5). 10-year Fracture Risk(1): Major Osteoporotic Fracture 9.3% Hip Fracture 1.2% Reported Risk Factors: [place] (), Neck BMD=0.605, BMI=36.1 (1) FRAX(R) Version 3.08. Fracture probability calculated for an untreated patient. Fracture probability may be lower if the patient has received treatment. Clinical Information Provided by Patient: Has used the following medications: Vitamin D Has the following medical conditions: Asthma or Emphysema, Cancer, COPD Patient maximum height was 65 Menopause Age: 41 No regular weight bearing exercise Drinks caffeinated beverages Onset of menses at age 11 Number of children 5 Impression: The patient has low bone mass, based on the Left Femoral Neck T-score. The patient has an estimated ten-year risk of hip fracture of 1.2% and an estimated ten-year risk of major fracture of 9.3%, based on the WHO FRAX algorithm. Discussion: BONE DENSITY IS LOW AT ONE OR MORE SKELETAL SITES. This patient's lowest T-score is low at one or more skeletal sites. It meets the World Health Organization's (WHO) criteria for ?low bone mass? (T-score between -1.0 and -2.5). The patient's 10-year risk of fracture as calculated by FRAX is less than the threshold where pharmacological therapy is recommended by the National Osteoporosis Foundation (NOF). However, all treatment decisions require clinical judgment and consideration of individual patient factors, including patient preferences, comorbidities, previous drug use, risk factors not captured in the FRAX model (e.g., frailty, falls, vitamin D deficiency, increased bone turnover, interval significant decline in bone density) and possible under or overestimation of fracture risk by FRAX. The patient should follow a healthful lifestyle (good nutrition with adequate calcium and vitamin D, and appropriate weight-bearing exercise). Follow-Up: Consider repeating this study in 2 to 3 years to reassess this patient
== END ==
PROVIDERS: PCP Internal Medicine Rheumatology; Visit Provider Internal Medicine Rheumatology
DX: M81.0 Age-related osteoporosis without current pathological fracture (principal); M85.88 Other specified disorders of bone density and structure, other site; M85.852 Other specified disorders of bone density and structure, left thigh; M85.851 Other specified disorders of bone density and structure, right thigh
CPT/HCPCS: 77080

== ENCOUNTER 2022-09-02 10:04 | Outpatient (CLI) | payer MEDICARE, MEDICAID, SELFPAY ==
--- NOTE | ~2022-09-02 | US_ITS ---
EXAMINATION: US venous doppler [facility] DATE: 09/02/2022 10:36 INDICATION: Lower limb swelling TECHNIQUE: Grayscale ultrasound images without and with compression and Doppler ultrasound images of the left lower extremity veins were obtained. COMPARISON: None. FINDINGS: The visualized portions of left common femoral vein, profunda (deep) femoral vein, femoral vein, popl iteal vein, peroneal veins, posterior tibial veins, gastrocnemius vein and greater saphenous vein out flow are patent. IMPRESSION: 1. No deep venous thrombosis in the left lower limb. Reviewed, dictated and finalized at location B.
== END 2022-09-02 10:05 | disposition home or self-care (01) ==
PROVIDERS: PCP Internal Medicine Rheumatology; Visit Provider Internal Medicine Cardiovascular Disease
DX: R60.0 Localized edema (principal)
CPT/HCPCS: 93971